=== PATIENT | male | born 1990 | race Caucasian/White ===

== ENCOUNTER 2018-01-18 15:32 | Observation (INO) | payer OTHER ==
--- NOTE | 2018-01-18 16:21 | EDPHY ---
General Time Seen by Provider: 01/18/18 16:03 Narrative: CHIEF COMPLAINT: Fever, "brain fog" HISTORY OF PRESENT ILLNESS: Patient complains of 11 days history of fever. This has been measured orally with a T-max of a 104. Is been constant duration. He has not been taking any medications for this. Associated with occasional headache and "brain fog," as well as occasional neck pain. At this time he has no headache or neck pain he does have the fall he references. He has had no sore throat. No runny nose. Possible sinus congestion. No cough or congestion. No shortness of breath. No abdominal pain. No urinary complaints. No back pain. No skin lesions or rash. No trauma or injury. No recent travel. He has had this in the past with extensive workup at the [facility] with Dr. Thomason. Diagnosis with fever of unknown origin. He also has recently started therapy for H pylori treatment with Prevpac. Started this on the 14 of January. He has no alleviating factors. No predictable modifying factors. No other associated complaints or modifying factors. REVIEW OF SYSTEMS: Ten systems reviewed and are negative unless otherwise noted in the HPI PCP: None currently SPECIALISTS: Infectious disease, Dr. Thomason GI, [facility] PAST MEDICAL HISTORY: Fever of unknown origin, H pylori, chronic diarrhea PAST SURGICAL HISTORY: Colonoscopy 2017 SOCIAL HISTORY: Nonsmoker. Lives and works here locally. FAMILY HISTORY: Noncontributory EXAMINATION General Appearance: Alert, no distress Head: normocephalic, atraumatic Eyes: Pupils equal and round, no conjunctival pallor or injection ENT, Mouth: Mucous membranes moist. Uvula midline. The airway is widely patent without erythema or edema. The floor of the mouth is unremarkable. Neck: Normal inspection, supple, non-tender. Painless range of motion all planes. No meningeal signs. Respiratory: Lungs are clear to auscultation. No wheezing. No rhonchi. No crackles. No retractions or distress Cardiovascular: Regular rate and rhythm. No murmur. Good signs of perfusion with symmetric pulses radial and DP. Gastrointestinal: Abdomen is soft and nontender. No tympany. No rigidity. No CVA tenderness. Back: non-tender, no bony abnormalities midline tenderness at any location. Neurological: A&O, nonfocal, normal gait. GCS 15. Strength symmetric in all 4 limbs. Skin: Warm and dry, no rash. No petechiae. No purpura. No lesions, abscesses or ecchymosis Extremities: Nontender, no pedal edema. Symmetric range of motion. Psychiatric: Mood and affect normal DIFFERENTIAL DIAGNOSES: Including but not limited to fever of unknown origin, UTI, pneumonia, mononucleosis, migraine, dehydration, sepsis, meningitis MDM: 4:20 p.m. Patient reports fever or 11 days duration. He is afebrile here. He has history of fever of unknown origin previously seen at the [facility]. He reports extensive workup but does not know evident was done. He has also recently started a prepack therapy for H pylori diagnosis, consisting of amoxicillin, clarithromycin and omeprazole. No headache or neck pain or stiffness at this time. No respiratory complaints. No abdominal pain. No urinary complaints. No rashes or lesions. He has had cyclical headache and neck pain resolved 7 day 8 days ago. His exam is completely benign at this time. I have ordered blood cultures, extensive laboratory studies, chest x-ray and urine. I have also ordered influenza swab and will consult Infectious Disease. His vital signs are well within normal limits and does not meet any criteria for SIRS at this time 4:30 p.m. Case discussed with infectious disease physician Dr. Harley Ibarra. He agrees with my workup thus far recommends treating this as an acute complaint of fever. He will attempt to locate the patient's history in [place]. 5:10 p.m. Chest x-ray has been interpreted by radiologist as right middle lobe pneumonia. I reviewed the images and agree with this. This does not match his clinical complaints but does match his complaint of fever. 5:18 p.m. CBC does show leukocytosis with mild left shift. Urinalysis is unremarkable. Chemistry is pending. Flu swab pending. 5:50 p.m. Influenza test are negative. Chemistry is pending. 6:10 p.m. Strep test is negative. ESR and CRP are elevated. Chemistries otherwise unremarkable. 6:25 p.m. I discussed the case with Dr. Harley Ibarra. He has reviewed the patient's case further from previous evaluation [facility]. We have reviewed the patient's presentation, vital signs, chest x-ray finding with right middle lobe pneumonia and his CBC findings. With the patient's history recommends admission to the hospital overnight for monitoring of vitals and fever curve. He recommends IV Rocephin and IV Zithromax. He will arrange for Dr. Thomason to evaluate the patient in the morning. 6:35 p.m. Case discussed with Dr. Martinez. He will admit the patient to his service. He is admitted in stable condition. 6:45 p.m. Re-evaluated the patient and discussed admission with him. He agrees to proceed. He has a documented allergy to Cefzil. I discussed this with him and his mother says that at age 2 he had a mild urticarial rash to the back of both hands. This was not systemic. He had no difficulty breathing was not intubated. He has had no problems with antibiotics since then. I offered alternative medication but they are comfortable attempting Rocephin. I have ordered IV Benadryl to be given at the same time. We will monitor him closely. At this time he is in no acute distress admitted in stable condition. SUPERVISION: Patient was independently examined, but I discussed the case with my secondary supervising physician Dr. Valdes - Diagnostics Imaging Results: Imaging Impressions Chest X-Ray 01/18/18 16:31 Impression: Right infrahilar opacity consistent with right middle lobe pneumonia. - History Smoking Status: Never smoked - Objective Vital Signs: Initial Vital Signs Temperature (C) 98.6 F 01/18/18 15:37 Heart Rate 98 01/18/18 15:37 Respiratory Rate 16 01/18/18 15:37 Blood Pressure 103/63 01/18/18 15:37 O2 Sat (%) 93 01/18/18 15:37 O2 Delivery Mode Room Air Allergies/Adverse Reactions: cefzil Allergy (Uncoded 01/18/18 15:42) Home Medications: Medication Instructions Recorded Amoxicillin Trihydrate [Amoxil] 1,000 mg PO BID 01/18/18 Clarithromycin 500 mg PO BID 01/18/18 Omeprazole 40 mg PO BID 01/18/18 Laboratory Results: Laboratory Results 01/18/18 16:45 01/18/18 16:45 01/18/18 01/18/18 01/18/18 16:45 16:45 16:45 WBC RBC Hgb Hct MCV MCH MCHC RDW Plt Count MPV Neut % (Auto) Lymph % (Auto) [place] % (Auto) Eos % (Auto) Baso % (Auto) Nucleat RBC Rel Count Absolute Neuts (auto) Absolute Lymphs (auto) Absolute Monos (auto) Absolute Eos (auto) Absolute Basos (auto) Absolute Nucleated RBC Immature Gran % Immature Gran # ESR Sodium Potassium Chloride Carbon Dioxide Anion Gap BUN Creatinine Estimated GFR Glucose Calcium Total Bilirubin Conjugated Bilirubin Unconjugated Bilirubin AST ALT Alkaline Phosphatase C-Reactive Protein Total Protein Albumin Urine Color YELLOW Urine Appearance CLEAR Urine pH 6.0 (5.0-7.5) Ur Specific [place] 1.010 (1.002-1.030) Urine Protein NEGATIVE (NEGATIVE) Urine Ketones NEGATIVE (NEGATIVE) Urine Blood NEGATIVE (NEGATIVE) Urine Nitrate NEGATIVE (NEGATIVE) Urine Bilirubin NEGATIVE (NEGATIVE) Urine Urobilinogen NEGATIVE EU EU (0.2-1.0) Ur Leukocyte Esterase NEGATIVE (NEGATIVE) Urine RBC NONE SEEN /hpf /hpf (0-3) Urine WBC 1-3 /hpf /hpf (0-3) Ur Epithelial Cells NONE SEEN /lpf /lpf (NONE-1+) Urine Glucose NEGATIVE (NEGATIVE) Nasal Influenza A PCR NEGATIVE FOR FLU A (NEGATIVE) Nasal Influenza B PCR NEGATIVE FOR FLU B (NEGATIVE) Group A Strep Screen NEGATIVE (NEGATIVE) 01/18/18 01/18/18 16:45 16:45 WBC 12.46 10^3/uL H 10^3/uL (3.80-9.50) RBC 5.28 10^6/uL 10^6/uL (4.40-6.38) Hgb 15.4 g/dL g/dL (13.7-17.5) Hct 44.2 % % (40.0-51.0) MCV 83.7 fL fL (81.5-99.8) MCH 29.2 pg pg (27.9-34.1) MCHC 34.8 g/dL g/dL (32.4-36.7) RDW 15.4 % H % (11.5-15.2) Plt Count 294 10^3/uL 10^3/uL (150-400) MPV 10.3 fL fL (8.7-11.7) Neut % (Auto) 82.0 % H % (39.3-74.2) Lymph % (Auto) 10.8 % L % (15.0-45.0) [place] % (Auto) 5.6 % % (4.5-13.0) Eos % (Auto) 0.5 % L % (0.6-7.6) Baso % (Auto) 0.3 % % (0.3-1.7) Nucleat RBC Rel Count 0.0 % % (0.0-0.2) Absolute Neuts (auto) 10.22 10^3/uL H 10^3/uL (1.70-6.50) Absolute Lymphs (auto) 1.34 10^3/uL 10^3/uL (1.00-3.00) Absolute Monos (auto) 0.70 10^3/uL 10^3/uL (0.30-0.80) Absolute Eos (auto) 0.06 10^3/uL 10^3/uL (0.03-0.40) Absolute Basos (auto) 0.04 10^3/uL 10^3/uL (0.02-0.10) Absolute Nucleated RBC 0.00 10^3/uL 10^3/uL (0-0.01) Immature Gran % 0.8 % % (0.0-1.1) Immature Gran # 0.10 10^3/uL 10^3/uL (0.00-0.10) ESR 20 MM/HR H MM/HR (0-15) Sodium 133 mEq/L L mEq/L (135-145) Potassium 4.2 mEq/L mEq/L (3.5-5.2) Chloride 95 mEq/L L mEq/L (97-110) Carbon Dioxide 24 mEq/l mEq/l (22-31) Anion Gap 14 mEq/L mEq/L (8-16) BUN 10 mg/dL mg/dL (7-23) Creatinine 0.9 mg/dL mg/dL (0.7-1.3) Estimated GFR > 60 Glucose 88 mg/dL mg/dL (70-100) Calcium 8.3 mg/dL L mg/dL (8.5-10.4) Total Bilirubin 0.7 mg/dL mg/dL (0.1-1.4) Conjugated Bilirubin 0.3 mg/dL mg/dL (0.0-0.5) Unconjugated Bilirubin 0.4 mg/dL mg/dL (0.0-1.1) AST 37 IU/L IU/L (17-59) ALT 58 IU/L IU/L (21-72) Alkaline Phosphatase 85 IU/L IU/L (38-126) C-Reactive Protein 161.6 mg/L H mg/L (<10.0) Total Protein 6.5 g/dL g/dL (6.3-8.2) Albumin 3.5 g/dL g/dL (3.5-5.0) Urine Color Urine Appearance Urine pH Ur Specific [place] Urine Protein Urine Ketones Urine Blood Urine Nitrate Urine Bilirubin Urine Urobilinogen Ur Leukocyte Esterase Urine RBC Urine WBC Ur Epithelial Cells Urine Glucose Nasal Influenza A PCR Nasal Influenza B PCR Group A Strep Screen Microbiology Results: MICROBIOLOGY 01/18/18 17:17 Sputum, Expectorated - Final Medications Given: Discontinued Medications Diphenhydramine HCl (Benadryl Injection) 50 mg IVP EDNOW ONE Stop: 01/18/18 18:44 Last Admin: 01/18/18 18:47 Dose: 50 mg Azithromycin 500 mg/ Sodium (Chloride) 255 mls @ 255 mls/hr IV EDNOW ONE PRN Reason: Protocol Stop: 01/18/18 19:33 Last Admin: 01/18/18 20:07 Dose: 255 mls Ceftriaxone Sodium/Dextrose (Rocephin 1 Gm (Premix)) 50 mls @ 100 mls/hr IV EDNOW ONE PRN Reason: Protocol Stop: 01/18/18 19:02 Last Admin: 01/18/18 19:04 Dose: 50 mls Departure - Departure Disposition: [facility] Inpatient Acute Clinical Impression: RML pneumonia Qualifiers: Pneumonia type: due to unspecified organism Qualified Code(s): J18.1 - Lobar pneumonia, unspecified organism Condition: Good
[2018-01-18 17:13] LABS: PLATELET COUNT 294 10^3/uL (150-400)
[2018-01-18] MEDS ORDERED: AZITHROMYCIN IV 500 MG in NS 250 ML IV ONE (18:34)
[2018-01-18 22:22] VITALS: RESP 16
[2018-01-18] MEDS ORDERED: ONDANSETRON 4 MG/2 ML VIAL IVP PRN (22:51)
[2018-01-18] MEDS ORDERED: ACETAMINOPHEN 325 MG TAB PO PRN (22:51)
[2018-01-18] MEDS ORDERED: NS 1,000 ML IV SCH (23:00)
--- NOTE | 2018-01-19 02:03 | PDGENHP ---
History and Physical - Chief Complaint Fevers - History of Present Illness Source-patient provides history and appears reliable. EMR was reviewed and case discussed with accepting hospitalist. HPI - this is a pleasant 27-year-old gentleman with past medical history significant for H pylori currently on therapy and chronic diarrhea who presents emergency department with complaints of feeling unwell including a fever up to 104 F and with some cognitive fogginess. Patient has been followed by Dr. Ivy Thomason with Infectious Disease for a history of 11 days of fever of unknown origin. Patient has been noting a little bit of occasional neck pain but no neck stiffness. He was recently started on a Prevpac for history of H pylori. Patient reports that he is on day 4. Of 14. He has noted a little bit of leg aching and crampiness. He denies any lower extremity swelling. Patient denies any cough, rhinorrhea, nasal congestion, sore throat, nausea/vomiting, bloody stools, dysuria or hematuria, rashes or sores. Patient does report that he has been experiencing a 10 lb weight loss related to significantly decreased appetite. Patient states that he has been able to orally hydrate. History Information - Allergies/Home Medication List Allergies/Adverse Reactions: cefprozil [From Cefzil] Allergy (Mild, Verified 01/18/18 23:05) Rash Home Medications: Amoxicillin Trihydrate [Amoxil] 1,000 mg PO BID 01/18/18 [Last Taken 01/18/18 09 :00] Clarithromycin 500 mg PO BID 01/18/18 [Last Taken 01/18/18 09:00] Omeprazole 40 mg PO BID 01/18/18 [Last Taken 01/18/18 09:00] I have personally reviewed and updated: family history, medical history, social history, surgical history - Past Medical History Additional medical history: History H pylori on Prevpac. Chronic diarrhea. - Surgical History Additional surgical history: Colonoscopy 2017, EGD, pill CAM endoscopy. - Family History Additional family history: Family members are all healthy. - Social History Smoking Status: Never smoked Alcohol Use: None (Patient reports he quit drinking in years) Drug Use: None Additional social history: Patient reports he has been unable to work secondary to his acute illness over the past month. Cor status full Review of Systems Review of Systems: ROS: 10pt was reviewed & negative except for what was stated in HPI & below Constitutional: Reports: chills, fever, weakness (Generalized), weight loss (10 lb) EENMT: Denies: blurred vision, nose congestion, sore throat Cardiac: Reports: no symptoms Respiratory: Reports: no symptoms Gastrointestinal: Reports: diarrhea (Chronic). Denies: vomitting, black stools , rectal bleeding, abdominal pain, nausea Genitourinary: Denies: dysuria, hematuria Muscolosketal: Reports: muscle pain (Occasional leg cramping), neck pain ( Occasional neck pain without stiffness) Skin: Reports: no symptoms Neurological: Reports: no symptoms Hematologic/Lymphatic: Reports: no symptoms Physical Exam Physical Exam: Selected Entries 01/18/18 15:37 Blood Pressure Automatic Method Heart Rate 98 Respiratory 16 Rate O2 Sat (%) 93 Temperature (C) 37 C Blood Pressure 103/63 Mean Arterial 76 Pressure (MAP) O2 Delivery Room Air Mode Temperature Oral Source Temp Pulse Resp BP Pulse Ox 37.2 C 77 16 104/55 L 94 01/18/18 22:21 01/18/18 22:21 01/18/18 22:21 01/18/18 22:21 01/18/18 22:21 Constitutional: no apparent distress Eyes: PERRL (Slightly decreased reactivity light bilaterally but symmetric.), anicteric sclera, EOMI, scleral injection Ears, Nose, Mouth, Throat: dry mucous membranes, other (No nasal discharge), No poor dentition Cardiovascular: regular rate and rhythym, no murmur, rub, or gallop, pulses symmetric bilaterally Peripheral Pulses: 2+: dorsalis-pedis (R), dorsalis-pedis (L) Respiratory: no respiratory distress, inspiratory crackles (Right anterior mid lower lung lung beatty), No reduced air movement, No expiratory wheeze, No respiratory distress, No rhonchi Gastrointestinal: normoactive bowel sounds Genitourinary: no bladder tenderness, No ricks in urethra Skin: warm, no rashes or abrasions, other ([place]) Musculoskeletal: generalized weakness (Moves all extremities) Neurologic: AAOx3, sensation intact bilaterally, weakness (Generalized), CN II- XII Intact, No facial droop Psychiatric: interacting appropriately, not anxious, not encephalopathic, thought process linear, flat affect Lab Data & Imaging Review 01/18/18 16:45 01/18/18 16:45 WBC 12.46 10^3/uL (3.80-9.50) H 01/18/18 16:45 RBC 5.28 10^6/uL (4.40-6.38) 01/18/18 16:45 Hgb 15.4 g/dL (13.7-17.5) 01/18/18 16:45 Hct 44.2 % (40.0-51.0) 01/18/18 16:45 MCV 83.7 fL (81.5-99.8) 01/18/18 16:45 MCH 29.2 pg (27.9-34.1) 01/18/18 16:45 MCHC 34.8 g/dL (32.4-36.7) 01/18/18 16:45 RDW 15.4 % (11.5-15.2) H 01/18/18 16:45 Plt Count 294 10^3/uL (150-400) 01/18/18 16:45 MPV 10.3 fL (8.7-11.7) 01/18/18 16:45 Neut % (Auto) 82.0 % (39.3-74.2) H 01/18/18 16:45 Lymph % (Auto) 10.8 % (15.0-45.0) L 01/18/18 16:45 [place] % (Auto) 5.6 % (4.5-13.0) 01/18/18 16:45 Eos % (Auto) 0.5 % (0.6-7.6) L 01/18/18 16:45 Baso % (Auto) 0.3 % (0.3-1.7) 01/18/18 16:45 Nucleat RBC Rel Count 0.0 % (0.0-0.2) 01/18/18 16:45 Absolute Neuts (auto) 10.22 10^3/uL (1.70-6.50) H 01/18/18 16:45 Absolute Lymphs (auto) 1.34 10^3/uL (1.00-3.00) 01/18/18 16:45 Absolute Monos (auto) 0.70 10^3/uL (0.30-0.80) 01/18/18 16:45 Absolute Eos (auto) 0.06 10^3/uL (0.03-0.40) 01/18/18 16:45 Absolute Basos (auto) 0.04 10^3/uL (0.02-0.10) 01/18/18 16:45 Absolute Nucleated RBC 0.00 10^3/uL (0-0.01) 01/18/18 16:45 Immature Gran % 0.8 % (0.0-1.1) 01/18/18 16:45 Immature Gran # 0.10 10^3/uL (0.00-0.10) 01/18/18 16:45 ESR 20 MM/HR (0-15) H 01/18/18 16:45 Sodium 133 mEq/L (135-145) L 01/18/18 16:45 Potassium 4.2 mEq/L (3.5-5.2) 01/18/18 16:45 Chloride 95 mEq/L (97-110) L 01/18/18 16:45 Carbon Dioxide 24 mEq/l (22-31) 01/18/18 16:45 Anion Gap 14 mEq/L (8-16) 01/18/18 16:45 BUN 10 mg/dL (7-23) 01/18/18 16:45 Creatinine 0.9 mg/dL (0.7-1.3) 01/18/18 16:45 Estimated GFR > 60 01/18/18 16:45 Glucose 88 mg/dL (70-100) 01/18/18 16:45 Calcium 8.3 mg/dL (8.5-10.4) L 01/18/18 16:45 Total Bilirubin 0.7 mg/dL (0.1-1.4) 01/18/18 16:45 Conjugated Bilirubin 0.3 mg/dL (0.0-0.5) 01/18/18 16:45 Unconjugated Bilirubin 0.4 mg/dL (0.0-1.1) 01/18/18 16:45 AST 37 IU/L (17-59) 01/18/18 16:45 ALT 58 IU/L (21-72) 01/18/18 16:45 Alkaline Phosphatase 85 IU/L (38-126) 01/18/18 16:45 C-Reactive Protein 161.6 mg/L (<10.0) H 01/18/18 16:45 Total Protein 6.5 g/dL (6.3-8.2) 01/18/18 16:45 Albumin 3.5 g/dL (3.5-5.0) 01/18/18 16:45 Urine Color YELLOW 01/18/18 16:45 Urine Appearance CLEAR 01/18/18 16:45 Urine pH 6.0 (5.0-7.5) 01/18/18 16:45 Ur Specific [place] 1.010 (1.002-1.030) 01/18/18 16:45 Urine Protein NEGATIVE (NEGATIVE) 01/18/18 16:45 Urine Ketones NEGATIVE (NEGATIVE) 01/18/18 16:45 Urine Blood NEGATIVE (NEGATIVE) 01/18/18 16:45 Urine Nitrate NEGATIVE (NEGATIVE) 01/18/18 16:45 Urine Bilirubin NEGATIVE (NEGATIVE) 01/18/18 16:45 Urine Urobilinogen NEGATIVE EU (0.2-1.0) 01/18/18 16:45 Ur Leukocyte Esterase NEGATIVE (NEGATIVE) 01/18/18 16:45 Urine RBC NONE SEEN /hpf (0-3) 01/18/18 16:45 Urine WBC 1-3 /hpf (0-3) 01/18/18 16:45 Ur Epithelial Cells NONE SEEN /lpf (NONE-1+) 01/18/18 16:45 Urine Glucose NEGATIVE (NEGATIVE) 01/18/18 16:45 Nasal Influenza A PCR NEGATIVE FOR FLU A (NEGATIVE) 01/18/18 16:45 Nasal Influenza B PCR NEGATIVE FOR FLU B (NEGATIVE) 01/18/18 16:45 Monoscreen NEGATIVE (NEGATIVE) 01/18/18 18:55 Group A Strep Screen NEGATIVE (NEGATIVE) 01/18/18 16:45 Imaging Review: PA and Lateral Chest Clinical Indications: Chest pain and fever in a 27-year-old male; no prior studies are available for comparison. Findings: There is streaky right infrahilar opacity presumably pneumonia. Left lung is clear.. The heart and pulmonary vessels are normal. There are no pleural effusions and no pneumothorax. The bones are unremarkable for this age. Impression: Right infrahilar opacity consistent with right middle lobe pneumonia. Visualized and Interpreted Chest x-ray results: Yes Chest X-Ray results: infiltrate (Right middle lobe numb ammonia) Assessment & Plan Assessment: RML pneumonia (Acute) - new finding on chest x-ray with right middle lobe pneumonia. Patient has been started on azithromycin and Rocephin for coverage. Blood cultures are pending. Infectious Disease was consulted from the emergency department. Patient is followed by Dr. Ivy Thomason. Fevers - patient has been afebrile since arrival to the hospital. He does not meet sepsis criteria at this time. Vital signs are acceptable and within normal limits. Leukocytosis - secondary to #1. Continue with IV fluid hydration repeat CBC in the morning. Hyponatremia - slightly decreased sodium. Likely related to dehydration. Patient is receiving IV fluid supplementation from the emergency department. At this time patient reports that he thinks he will be able to tolerate oral hydration will continue to encourage patient to do so liberally. Will monitor ins and outs closely. H pylori - plan to continue patient's PPI and and defer adjustment of antibiotics to ID for continued therapy given escalation to IV for his pneumonia. Patient has completed day 4 of 14 of his clarithromycin and amoxicillin dosing and his Prevpac. Weight loss - patient reports a 10 lb weight loss since his onset of which illnesses. His appetite does remain decline but he states that he is tolerating oral hydration while. Daily weights. FEN - status post IV fluids in the emergency department. Patient reports that he can tolerate oral hydration declines further IV fluids overnight. Electrolytes will be monitored and replaced if needed. Advance diet as tolerated. PPX-SCDs and Lovenox. Cor-full Disposition patient admitted to observation status at this time pending further recommendations from Infectious Disease.
[2018-01-19 04:57] LABS: PLATELET COUNT 265 10^3/uL (150-400)
[2018-01-19] MEDS ORDERED: ENOXAPARIN 40 MG/0.4 ML SYR SC SCH (09:00)
[2018-01-19] MEDS ORDERED: NON-FORMULARY NEW DRUG (Omeprazole [Omeprazole] 40 MG) PO SCH (09:00)
[2018-01-19] MEDS ORDERED: PANTOPRAZOLE SODIUM 40 MG TAB PO SCH (09:00)
--- NOTE | 2018-01-19 09:50 | ASMTCASEMG ---
Living Arrangements What is your living Answers: Alone arrangement? Who do you live with? Type Of Residence What kind of residence do Answers: House you live in? Discharge Plan Comments Coordination Status Comments Notes: Pt is a 27 y/o man admitted for fevers. Pt has been followed by Dr. Ivy Thomason for the fevers prior to coming to the hospital. Pt will most likely not have any d/c needs. No therapies ordered at this time. CM available for changes. Plan: Independent Date Signed: 01/19/2018 09:49 AM Electronically Signed By:OSVALDO Hamilton
[2018-01-19 11:04] VITALS: TEMP 98.9
--- NOTE | 2018-01-19 11:40 | HOSPPROG ---
Hospitalist Progress Note Assessment/Plan: Patient is a 27-year-old male with a past medical history of H pylori and chronic diarrhea. He had complaints of feeling poorly and had a fever up to 104 degrees F. He has been following up with Dr. Thomason because he has a history of fever of unknown origin. Today is my 1st encounter with the patient. Chart reviewed. * RML PNA -azithro + rocephin -lung sounds CTA *fevers -none noted during his stay -PCR is negative, flu is negative, slight elevation in sed rate -blood cx and sputum cx are pending *frequent headaches -describes being in a 'fog' *Leukocytosis -better today *hyponatremia *H pylori -cont PPI bid -holding abx till I further discuss w Dr Thomason -on day #02/06 *weight loss *plan : dc home on Levaquin x 4 doses, he will f/u with Dr Thomason Subjective: Mike is feeling a bit better after getting the antibiotics. Objective: Vital Signs Temp Pulse Resp BP Pulse Ox 37.2 C 81 16 92/59 L 95 01/19/18 11:01 01/19/18 11:01 01/19/18 11:01 01/19/18 11:01 01/19/18 11:01 Laboratory Results 01/19/18 04:11 01/19/18 04:11 01/18/18 01/19/18 01/20/18 05:59 05:59 05:59 Intake Total 550 Balance 550 - Physical Exam Constitutional: no apparent distress, other (thin) Eyes: PERRL Ears, Nose, Mouth, Throat: hearing normal Cardiovascular: regular rate and rhythym Respiratory: no respiratory distress, no rales or rhonchi, clear to auscultation Skin: warm Musculoskeletal: full muscle strength Neurologic: AAOx3 Psychiatric: interacting appropriately ICD10 Worksheet Patient Problems: Problems Problem Status Onset RML pneumonia Acute
--- NOTE | 2018-01-19 15:04 | GDS ---
[f rep st] DISCHARGE SUMMARY DISCHARGE DIAGNOSES: 1. Right middle lobe pneumonia. 2. Fevers. 3. Frequent headaches. 4. Leukocytosis. 5. Hyponatremia. 6. Helicobacter pylori. 7. Weight loss. CONSULTATION: Dr. Ivy Thomason. HISTORY OF PRESENT ILLNESS: Briefly, the patient is a 27-year-old male with a past medical history of H pylori and frequent bouts of diarrhea. He had been feeling poorly and had fevers up to 104 degrees. He came to the ER, had a chest x-ray that noted that he had a right middle lobe pneumonia. He was treated with azithromycin and Rocephin. He will be discharged on 4 more days of Levaquin and follow up with Dr. Thomason in the outpatient setting. HOSPITAL COURSE: 1. Right middle lobe pneumonia. His lung sounds are clear. He is oxygenating well on room air. Blood cultures and sputum cultures are pending. 2. Fevers. He has had none during his stay. PCR is negative. Flu is negative. He has a slight elevation in the sed rate. 3. Frequent headaches. He said this has been going on for years. 4. Leukocytosis. Better. 5. Hyponatremia. Suspect this is from being dehydrated. 6. H pylori. He can continue his PPI b.i.d. but hold off on his antibiotics. 7. Weight loss. This is secondary from not eating and drinking well due to the H pylori. DISCHARGE CONDITION: Stable. Blood pressure is 92/59, heart rate is 81, respiratory rate is 16, O2 sats on room air 95%, temperature is 37.2 Celsius. MEDICATIONS AT DISCHARGE: Please see the EMR. DISCHARGE INSTRUCTIONS: 1. To be aware that Levaquin can affect his tendons, especially his Achilles tendon. If he has pain, to stop taking this and follow up with his PCP. 2. To stop his antibiotics for the H pylori, but continue the PPI b.i.d. 3. Start the Levaquin tomorrow. /[id number]/MODL MTDD
[2018-01-19 15:42] VITALS: BP 101/58; PULSE 89; O2SAT 96
--- NOTE | 2018-01-19 16:24 | GCON ---
[f rep st] CONSULTATION INFECTIOUS DISEASE CONSULTATION REFERRING PHYSICIAN: Dedrick Valdes MD REASON FOR CONSULTATION: Recurrent infections and/or FUO. HISTORY OF PRESENT ILLNESS: This is a 27-year-old male whom I have previously seen for MRSA abscess of the buttock, who presents to the hospital after 11 days of fever with T-max of 104. He had associ ated nasal stuffiness, diarrhea, headache. Overnight, after receiving a dose of azithromycin and Benji ephin, he feels improved, but he still has persistent brain fog. The patient did attempt to take ant ipyretics when his temperature was 104 which would result in sweating. That did not make him feel we ll. Therefore, he only did that 1 or 2 times. Otherwise, he just let the fever persist and resolve on its own. He did have some decreased ability to exert himself while ill and decreased appetite, an d yesterday he developed some right-sided pleuritic chest pain. He presented to the emergency room f or further evaluation. Blood and urine cultures were obtained, and the patient was started on azithromycin and ceftriaxone b ased on chest x-ray showing right middle lobe pneumonia. The patient has been having intermittent febrile illnesses up to 4 times a year lasting 4-5 days. Pr imarily, his symptoms are headache. He denies respiratory symptoms. Last was 1 month ago. Since mo ving to [place] in June 2016, the patient has lost 10-20 pounds, but he says when he is not ill his appetite is excellent. REVIEW OF SYSTEMS: A complete 10-point review of systems was performed and is negative, except as me ntioned in the HPI. Pertinent negatives include no mouth sores. No abdominal tenderness, nausea, or vomiting. No rash. No hair loss. PAST MEDICAL HISTORY: He had Cryptosporidium at age 2 and mono at age 2. He was diagnosed with H py bruce and recently started taking the multidrug antibiotic regimen 322. His mother is present during the exam and denies recurrent infections in childhood. PAST SURGICAL HISTORY: [place] teeth extraction, facial surgery, and labral tear of the right shoulde r. ALLERGIES: Cefzil causes a rash. FAMILY HISTORY: Positive for colon cancer and a remote history of multiple myeloma in his maternal jacobo proctorat grandfather. He has a healthy sister. 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 He has a female partner. He is sexually active. Lives went to the [facility] June of 2017. Denies any tick bites, sorensen expos ure, or hot tubs. He previously was a deer mary, but has not deer hunted since June of 2016. He has no pets. MEDICATIONS: Ceftriaxone 1 g IV daily started 01/18, azithromycin 500 mg daily started 01/18. PHYSICAL EXAMINATION: VITAL SIGNS: T-max 37.7 while hospitalized, T-current 37.2, blood pressure 10 1/58, heart rate 89, respiratory rate 16, saturation 96% on room air. GENERAL: This is a young, hea lthy-appearing male, lying in bed, in no acute distress. HEENT: Pupils reactive bilaterally. Oroph arynx: Good dentition. Moist mucous membranes. No ulcerations or exudate. NECK: Supple. CARDIOV ASCULAR: Regular rate. No murmur. CHEST: Clear to auscultation bilaterally. The patient has no r espiratory distress. ABDOMEN: Soft, nontender. Bowel sounds are present. EXTREMITIES: No clubbin g, cyanosis, or edema. SKIN: The patient had a maculopapular eruption on his chest and neck, query early hives. He had no peripheral stigmata of endocarditis. NEUROLOGIC: He is alert and oriented x 4. Moving all 4 extremities equally. LABORATORY: White count 12 yesterday, today 10, hematocrit 41, platelets of 265, 81% neutrophils. E SR 20. CRP 161. Creatinine 0.8. LFTs are within normal limits. AST 37, ALT 58, alkaline phosphata se 85, albumin 3.5. Group A strep DNA is pending. A mono screen was negative. Blood cultures are p ending. He had a respiratory panel PCR that was negative. A sputum culture was obtained and appeare d polymicrobial on Gram stain. ASSESSMENT AND PLAN: A 27-year-old male who presents to the hospital with 11 days of fever, found to have a leukocytosis and right middle lobe pneumonia consistent with community-acquired pneumonia. F amily and patient query recurrent fevers and whether there is an underlying universal problem. Discussed consideration of primary infectious disease problem versus underlying immune deficiency. W ould lean towards workup of immune deficiency in light of differing nature of prior infections, inclu ding MRSA abscess. Recommend testing for oxidative burst with immunoglobulins, including IgE, CD4, C D8, T-cells and HIV screen. Will follow up on these lab tests as an outpatient. Would recommend com pleting antibiotic course with levofloxacin, as patient appears to be developing urticarial rash like ly due to cephalosporin with his past rash to cefprozil. The patient will call and set up an appoint ment in the [facility]. /[id number]/MODL
[2018-01-19 18:09] LABS: HIV TYPE 1 AND 2 NEGATIVE (NEGATIVE)
[2018-01-19] MEDS ORDERED: AZITHROMYCIN IV 500 MG in NS 250 ML IV SCH ×2 (19:00→20:00)
== END 2018-01-19 16:18 | disposition home or self-care (01) ==
LOC: F3E 19:47
PROVIDERS: ADMIT Internal Medicine Pulmonary Disease; ATTEND Internal Medicine Pulmonary Disease
DX: J18.1 Lobar pneumonia, unspecified organism (principal); R50.9 Fever, unspecified; R51 Headache; D72.829 Elevated white blood cell count, unspecified; E87.1 Hypo-osmolality and hyponatremia; B96.81 Helicobacter pylori [H. pylori] as the cause of diseases classified elsewhere; R63.4 Abnormal weight loss
CPT/HCPCS: 71046; G0378; 82784-90; 96365; J0456; J0696; J1200; J1650

== ENCOUNTER → 2018-02-04 | Outpatient (CLI) | payer BC | LOC: FIMAGING 11:35 → EDSTATUS 11:36 | PROVIDERS: ATTEND Internal Medicine Infectious Disease | DX: J40 Bronchitis, not specified as acute or chronic (principal); B99.9 Unspecified infectious disease; D72.829 Elevated white blood cell count, unspecified; R76.8 Other specified abnormal immunological findings in serum ==

== ENCOUNTER → 2018-03-08 | Outpatient (CLI) | payer BC | LOC: FIMAGING 14:08 | PROVIDERS: ATTEND Internal Medicine Rheumatology | DX: M79.662 Pain in left lower leg (principal) ==